=== PATIENT | female | born 1955 | race African-American/Black ===

== ENCOUNTER 2022-03-03 21:31 | Emergency (ER) | payer OTHER ==
[~2022-03-03] VITALS: Ht 165.1 cm; Wt 82.1 kg
[2022-03-03 22:16] VITALS: BP 166/83
== END 2022-03-03 22:16 | disposition home or self-care (01) ==
LOC: FSED 21:49
DX: H92.02 Otalgia, left ear (principal); T16.2XXA Foreign body in left ear, initial encounter; I10 Essential (primary) hypertension
CPT/HCPCS: 99282